=== PATIENT | female | born 1970 | race Caucasian/White ===

== ENCOUNTER 2021-07-02 12:25 | Inpatient (IN) | payer MEDICAID ==
[~2021-07-02] VITALS: Ht 160 cm; Wt 69.7 kg
[~2021-07-02 12:25] MED LIST: Aspirin PO; CEPH-264 PO; CIPR250T30 PO; CLOP75TA PO; CLOP75TA57 PO; DOCU-109 PO; GABA300C18 PO; Hydrocodone/Acetaminophen PO; INSU100I13 SQ; INSU100I17 SQ; INSU100I27 SQ; Insulin Detemir SQ; OXYC1TAB19 PO; PERM60CR12 TP; PREG50CA91 PO
--- NOTE | 2021-07-02 13:06 | RAD ---
XR CHEST 1V History: Reason: SOB / Spl. Instructions: / History: Comparison: December 05, 2014 Findings: Small bilateral pleural effusions, left greater than right. Mild interstitial thickening with patchy bibasilar opacities. Left-sided ICD. Enlarged cardiac size. No pneumothorax. Impression: 1. Small bilateral pleural effusions, left greater than right. 2. Mild interstitial thickening with patchy bibasilar opacities, may represent pulmonary edema. 3. Enlarged cardiac size, may indicate cardiomegaly and/or pericardial effusion. Electronically signed by: Greg Elliott DO (07/02/2021 1:04 PM) [facility]
[2021-07-02 13:28] LABS: BASO % 1 % (0-3); EOS # 0.1 x10^3/uL (0.0-0.7); EOS % 3 % (0-3); HEMATOCRIT 26.6 % (36.0-47.0); HEMOGLOBIN 8.8 g/dL (12.0-15.5); LYMPH # 0.7 x10^3/uL (1.0-4.8); LYMPH % 17 % (24-48); MEAN CORPUSCULAR HEMOGLOBIN 30 pg (25-35); MEAN CORPUSCULAR HGB CONC 33 g/dL (31-37); MEAN CORPUSCULAR VOLUME 89 fL (79-100); MONO # 0.2 x10^3/uL (0.0-1.1); MONO % 5 % (0-9); NEUT # 2.8 x10^3/uL (1.8-7.7); NEUT % 73 % (31-73); PLATELET COUNT 250 x10^3/uL (140-400); RED BLOOD COUNT 2.98 x10^6/uL (3.50-5.40); RED CELL DISTRIBUTION WIDTH 13.1 % (11.5-14.5); WHITE BLOOD COUNT 3.8 x10^3/uL (4.0-11.0)
[2021-07-02 13:43] LABS: CREATININE 2.4 mg/dL (0.6-1.0); GFR 21.4; POTASSIUM 5.1 mmol/L (3.5-5.1)
[2021-07-02 13:48] LABS: ALBUMIN 2.7 g/dL (3.4-5.0); ALBUMIN/GLOBULIN RATIO 0.6 (1.0-1.7); TOTAL BILIRUBIN 0.9 mg/dL (0.2-1.0); TOTAL PROTEIN 7.2 g/dL (6.4-8.2)
[2021-07-02 14:08] LABS: INFLUENZA A PATIENT POSITIVE (NEGATIVE); INFLUENZA B PATIENT NEGATIVE (NEGATIVE)
[2021-07-02] MEDS: OSELTAMIVIR 30 MG CAPSULE PO SCH (14:28)
[2021-07-02] MEDS ORDERED: FUROSEMIDE 40 MG/4 ML VIAL. IVP ONE (14:30)
[2021-07-02] MEDS ORDERED: INSULIN REGULAR 100 UNIT/ML 3ML VIAL. IV ONE (14:30)
--- NOTE | 2021-07-02 14:46 | PHYS DOC ---
Past Medical History Past Medical History: Diabetes-Type II Additional Past Medical Histor: [id number] w/meds; Staph infection, dka, insect infestation Past Surgical History: No Surgical History Additional Past Surgical Histo: DNC; PICC line insertion, Right BKA Smoking Status: Former Smoker Alcohol Use: None Drug Use: None General Adult EDM: Chief Complaint: COUGH HPI: HPI: Patient is a 50 year old female presents to the ER with extreme fatigue shortness of breath and cough. Patient states that her grandson has viral upper respiratory infection states that she wanted to be worked up for that. States her symptoms started progressively over the last 3 days. Patient also states that she has a history of CHF and was wondering if her CHF was getting worse as she has noticed that her lower extremities have become more edematous. Patient reports dyspnea on exertion. Patient denies any fevers or chills denies any nausea or vomiting. Patient also insulin-dependent diabetic states that she did not take her insulin yesterday as her appetite is decreased. Review of Systems: Review of Systems: Constitutional: Fatigue, denies fever or chills. [] Eyes: Denies change in visual acuity. [] HENT: Denies nasal congestion or sore throat. [] Respiratory: Dry cough and shortness of breath Cardiovascular: Dyspnea on exertion, lower extremity edema denies chest pain GI: Denies abdominal pain, nausea, vomiting, bloody stools or diarrhea. [] : Denies dysuria. [] Musculoskeletal: Denies back pain or joint pain. [] Integument: Denies rash. [] Neurologic: Denies headache, focal weakness or sensory changes. [] Endocrine: Denies polyuria or polydipsia. [] Lymphatic: Denies swollen glands. [] Psychiatric: Denies depression or anxiety. [] Heart Score: C/O Chest Pain: No Risk Factors: Risk Factors: DM, Current or recent (<one month) smoker, HTN, HLP, family history of CAD, obesity. Risk Scores: Score 0 - 3: 2.5% MACE over next 6 weeks - Discharge Home Score 4 - 6: 20.3% MACE over next 6 weeks - Admit for Clinical Observation Score 7 - 10: 72.7% MACE over next 6 weeks - Early Invasive Strategies Current Medications: Current Medications Medications (Trade) Dose Ordered Sig/Alexandra Start Time Stop Time Status Last Admin Dose Admin Furosemide (Lasix) 40 mg 1X ONCE 07/02/21 14:30 07/02/21 14:31 DC 07/02/21 14:30 40 MG Insulin Human Regular (HumuLIN R VIAL) 6 unit 1X ONCE 07/02/21 14:30 07/02/21 14:31 DC 07/02/21 14:37 6 UNIT Oseltamivir Phosphate (Tamiflu) 30 mg DAILY 07/02/21 14:30 07/07/21 14:29 07/02/21 14:28 30 MG Allergies: Allergies: Allergies Coded Allergies Type Severity Reaction Last Updated Verified No Known Drug Allergies 12/11/13 No Physical Exam: PE: Constitutional: Well developed, well nourished, no acute distress, non-toxic appearance. [] HENT: Normocephalic, atraumatic, bilateral external ears normal, oropharynx moist, no oral exudates, nose normal. [] Eyes: PERRLA, EOMI, conjunctiva normal, no discharge. [] Neck: Normal range of motion, no tenderness, supple, no stridor. [] Cardiovascular:Heart rate regular rhythm, no murmur [] Lungs & Thorax: Bilateral breath sounds clear to auscultation [] Abdomen: Bowel sounds normal, soft, no tenderness, no masses, no pulsatile masses. [] Skin: Warm, dry, no erythema, no rash. [] Back: No tenderness, no CVA tenderness. [] Extremities: No tenderness, no cyanosis, no clubbing, ROM intact, no edema. [] Neurologic: Alert and oriented X 3, normal motor function, normal sensory function, no focal deficits noted. [] Psychologic: Affect normal, judgement normal, mood normal. [] Current Patient Data: Labs: Laboratory Tests Test 07/02/21 13:10 07/02/21 13:25 07/02/21 13:30 White Blood Count 3.8 x10^3/uL (4.0-11.0) L Red Blood Count 2.98 x10^6/uL (3.50-5.40) L Hemoglobin 8.8 g/dL (12.0-15.5) L Hematocrit 26.6 % (36.0-47.0) L Mean Corpuscular Volume 89 fL (79-100) Mean Corpuscular Hemoglobin 30 pg (25-35) Mean Corpuscular Hemoglobin Concent 33 g/dL (31-37) Red Cell Distribution Width 13.1 % (11.5-14.5) Platelet Count 250 x10^3/uL (140-400) Neutrophils (%) (Auto) 73 % (31-73) Lymphocytes (%) (Auto) 17 % (24-48) L Monocytes (%) (Auto) 5 % (0-9) Eosinophils (%) (Auto) 3 % (0-3) Basophils (%) (Auto) 1 % (0-3) Neutrophils # (Auto) 2.8 x10^3/uL (1.8-7.7) Lymphocytes # (Auto) 0.7 x10^3/uL (1.0-4.8) L Monocytes # (Auto) 0.2 x10^3/uL (0.0-1.1) Eosinophils # (Auto) 0.1 x10^3/uL (0.0-0.7) Basophils # (Auto) 0.0 x10^3/uL (0.0-0.2) Sodium Level 135 mmol/L (136-145) L Potassium Level 5.1 mmol/L (3.5-5.1) Chloride Level 100 mmol/L (98-107) Carbon Dioxide Level 24 mmol/L (21-32) Anion Gap 11 (6-14) Blood Urea Nitrogen 54 mg/dL (7-20) H Creatinine 2.4 mg/dL (0.6-1.0) H Estimated GFR (Cockcroft-Gault) 21.4 BUN/Creatinine Ratio 23 (6-20) H Glucose Level 451 mg/dL (70-99) H Calcium Level 9.0 mg/dL (8.5-10.1) Total Bilirubin 0.9 mg/dL (0.2-1.0) Aspartate Amino Transferase (AST) 12 U/L (15-37) L Alanine Aminotransferase (ALT) 24 U/L (14-59) Alkaline Phosphatase 95 U/L (46-116) NT-Vev-I-Type Natriuretic Peptide 55322 pg/mL (0-124) H Total Protein 7.2 g/dL (6.4-8.2) Albumin 2.7 g/dL (3.4-5.0) L Albumin/Globulin Ratio 0.6 (1.0-1.7) L SARS-CoV-2 Antigen (Rapid) Negative (NEGATIVE) Influenza Type A Antigen Positive (NEGATIVE) Influenza Type B Antigen Negative (NEGATIVE) Laboratory Tests 07/02/21 13:10 Laboratory Tests 07/02/21 13:10 Vital Signs: Vital Signs Date Time Temp Pulse Resp B/P (MAP) Pulse Ox O2 Delivery O2 Flow Rate FiO2 07/02/21 12:32 98.8 75 55 158/74 (102) 92 Room Air 98.8 EKG: EKG: [] Sinus rhythm heart rate of 74. No ischemic changes. QTc 429 SC interval 156 Radiology/Procedures: Radiology/Procedures: []XR CHEST 1V History: Reason: SOB / Spl. Instructions: / History: Comparison: December 05, 2014 Findings: Small bilateral pleural effusions, left greater than right. Mild interstitial thickening with patchy bibasilar opacities. Left-sided ICD. Enlarged cardiac size. No pneumothorax. Impression: 1. Small bilateral pleural effusions, left greater than right. 2. Mild interstitial thickening with patchy bibasilar opacities, may represent pulmonary edema. 3. Enlarged cardiac size, may indicate cardiomegaly and/or pericardial effusion. Course & Med Decision Making: Course & Med Decision Making Pertinent Labs and Imaging studies reviewed. (See chart for details) [] Discussed the case with hospitalist Patient given Lasix. Patient given insulin. Dragon Disclaimer: Mindi Disclaimer: This electronic medical record was generated, in whole or in part, using a voice recognition dictation system. Departure Departure Impression: Primary Impression: CHF (congestive heart failure) Additional Impressions: Influenza A Hyperglycemia Acute renal insufficiency Condition: STABLE Referrals: NO PCP CARLOS ANGELA DO Jul 02, 2021 14:46
--- NOTE | 2021-07-02 15:09 | HP ---
DATE OF SERVICE: 07/02/2021 ADMIT DATE: 07/02/2021 CHIEF COMPLAINT: Shortness of breath and cough. HISTORY OF PRESENT ILLNESS: The patient is a pleasant 50-year-old female who has a history of cardiomyopathy with a 15-20% ejection fraction. Basically, she presented with shortness of breath today, which we did some imaging and some labs. She has flu A. She also has acute on chronic systolic and diastolic heart failure with vascular congestion. I discussed the case with ER physician. We are going to admit the patient and consult Cardiology. PAST MEDICAL HISTORY: CHF with a 15-20% EF, CAD, diabetes, hypertension. ALLERGIES: None. FAMILY HISTORY: Diabetes. SOCIAL HISTORY: She does not drink, smoke or take drugs. MEDICATIONS: Reviewed, please refer to the MRAD. REVIEW OF SYSTEMS: GENERAL: No history of weight change, weakness or fevers. SKIN: No bruising, hair changes or rashes. EYES: No blurred, double or loss of vision. NOSE AND THROAT: No history of nosebleeds, hoarseness or sore throat. HEART: No history of palpitations, chest pain or shortness of breath on exertion. LUNGS: She complains of shortness of breath and cough. GASTROINTESTINAL: Denies changes in appetite, nausea, vomiting, diarrhea or constipation. GENITOURINARY: No history of frequency, urgency, hesitancy or nocturia. NEUROLOGIC: Denies history of numbness, tingling, tremor or weakness. PSYCHIATRIC: No history of panic, anxiety or depression. ENDOCRINE: No history of heat or cold intolerance, polyuria or polydipsia. EXTREMITIES: Denies muscle weakness, joint pain, pain on walking or stiffness. PHYSICAL EXAMINATION: VITALS: Within normal limits and are stable. GENERAL: No apparent distress. Alert and oriented. HEENT: Normal cephalic atraumatic, external auditory canals are patent. EYES: Extraocular muscles are intact, pupils are equally round and reactive to light and accommodation. MUSCULOSKELETAL: Well developed, well nourished, good range of motion. ENDOCRINE: No thyromegaly was palpated. LYMPHATICS: No cervical chain or axillary nodes were noted. HEMATOPOIETIC: No bruising. NECK: Supple, no JVD, no thyromegaly was noted. LUNGS: She has crackles on the right. HEART: RRR, S1, S2 present. Peripheral pulses intact, no obvious murmurs were noted. ABDOMEN: Soft, nontender. Positive bowel sounds no organomegaly, normal bowel sounds. EXTREMITIES: Without any cyanosis, clubbing, or edema. Pedal pulses intact, Homans sign is negative. NEUROLOGIC: Normal speech, normal tone. A and O x 3, moves all extremities, no obvious focal deficits. PSYCHIATRIC: Normal affect, normal mood. Stable. SKIN: No ulcerations or rashes, good skin turgor, no jaundice. VASCULAR: Good capillary refill, neurovascular bundle appears to be intact. LABORATORY DATA: White count is 3.8, hemoglobin 8.8, platelets 250. Electrolytes: Sodium 135, BUN 54, creatinine 2.4. Flu A is positive. COVID testing is negative. Chest x-ray shows small bilateral pleural effusions, pulmonary edema and cardiomegaly. ASSESSMENT AND PLAN: Acute on chronic systolic and diastolic heart failure with flu A. The patient has been admitted. We will consult Cardiology. IV Lasix. Tamiflu. Home meds. Deep venous thrombosis prophylaxis. Full code. BETY/GABI DR: BETY/amy TID: [id number]
[2021-07-02 17:05] VITALS: BP 148/64
[2021-07-02] MEDS ORDERED: CRESTOR40 MG PO (17:07)
[2021-07-02] MEDS ORDERED: ASPI-886 PO (17:07)
[2021-07-02] MEDS ORDERED: FERR240T11 PO (17:07)
[2021-07-02] MEDS ORDERED: CARV12.511 PO (17:07)
[2021-07-02] MEDS ORDERED: ONDA4TAB12 PO (17:07)
[2021-07-02] MEDS ORDERED: TORS100T3 PO (17:07)
[2021-07-02] MEDS ORDERED: ONDANSETRON ODT 4 MG TAB.RAPDIS. PO PRN (17:45)
[2021-07-02] MEDS ORDERED: DEXTROSE 50% 25 GM / 50ML DISP.SYRIN. IV PRN (17:45)
[2021-07-02] MEDS ORDERED: IV DEXTROSE 5% 250 ML BAG. IV PRN (17:45)
[2021-07-02] MEDS: TORSEMIDE 20 MG TABLET. PO SCH (18:00)
[2021-07-02] MEDS: CARVEDILOL 12.5 MG TABLET. PO SCH (18:00)
[2021-07-02] MEDS: INSULIN LISPRO 300 UNITS/3 ML VIAL. SQ SCH (18:09)
[2021-07-02] MEDS ORDERED: INSU100I13 SQ (18:13)
[2021-07-02 19:17] VITALS: BP 148/74
[2021-07-02] MEDS ORDERED: ATORVASTATIN CALCIUM 40 MG TABLET. PO SCH (21:00)
[2021-07-02] MEDS: INSULIN GLARGINE SYRINGE. SQ SCH (21:32)
[2021-07-02 22:18] VITALS: BP 140/73
[2021-07-03 02:06] VITALS: BP 138/74
[2021-07-03 07:00] VITALS: BP 141/65
[2021-07-03] MEDS: CARVEDILOL 12.5 MG TABLET. PO SCH ×2 (07:39→16:51)
[2021-07-03] MEDS: TORSEMIDE 20 MG TABLET. PO SCH ×2 (07:39→13:51)
[2021-07-03] MEDS: FERROUS SULFATE 325 MG TABLET. PO SCH (07:40)
[2021-07-03] MEDS: ASPIRIN ENTERIC COATED 81 MG TABLET.DR. PO SCH (07:40)
[2021-07-03] MEDS: OSELTAMIVIR 30 MG CAPSULE PO SCH (07:40)
[2021-07-03] MEDS: INSULIN LISPRO 300 UNITS/3 ML VIAL. SQ SCH ×3 (07:42→16:52)
--- NOTE | 2021-07-03 09:58 | PDOC2 ---
CONSULT Date of Consult Date of Consult DATE: 07/03/21 TIME: 09:54 Reason for Consult Reason for Consult: DAMIEN Identification/Chief Complaint Chief Complaint No complaints at present History of Present Illness Reason for Visit: Patient is a 50 year old CF presents to the ER with extreme fatigue shortness of breath and cough. Patient states that her grandson has viral upper respiratory infection states that she wanted to be worked up for that. States her symptoms started progressively over the last 3 days. Patient also states that she has a history of CHF and was wondering if her CHF was getting worse as she has noticed that her lower extremities have become more edematous. Patient reports dyspnea on exertion. Patient denies any fevers or chills denies any nausea or vomiting.Denies any urinary complaints. States remote history of Nephrolithiasis, nothing recently .States very rare use of NSAID;s. States follows with [facility] in [place] and she has CKD stage 3, doesnt know any other details Patient also insulin-dependent diabetic states that she did not take her insulin yesterday as her appetite is decreased. Past Medical History Cardiovascular: Other CENTRAL NERVOUS SYSTEM: Periperal neuropathy GI: No pertinent hx Heme/Onc: Cancer Hepatobiliary: No pertinent hx Psych: No pertinent hx Musculoskeletal: Osteoarthritis Rheumatologic: No pertinent hx Infectious disease: No pertinent hx, Other Renal/: No pertinent hx Endocrine: Diabetes Past Surgical History Past Surgical History: Other Family History Family History: Family History Unknown Social History ALCOHOL: none Drugs: None Lives: with Family Domestic Violence: Neg Current Problem List Problem List Problems Medical Problems: (1) Acute renal insufficiency Status: Acute (2) CHF (congestive heart failure) Status: Acute (3) Influenza A Status: Acute (4) Intracranial hemorrhage Status: Acute Current Medications Current Medications Current Medications Oseltamivir Phosphate (Tamiflu) 30 mg DAILY PO Last administered on 07/03/21at 07:40; Start 07/02/21 at 14:30; Stop 07/07/21 at 14:29 Furosemide (Lasix) 40 mg 1X ONCE IVP Last administered on 07/02/21at 14:30; Start 07/02/21 at 14:30; Stop 07/02/21 at 14:31; Status DC Insulin Human Regular (HumuLIN R VIAL) 6 unit 1X ONCE IV Last administered on 07/02/21at 14:37; Start 07/02/21 at 14:30; Stop 07/02/21 at 14:31; Status DC Dextrose (Dextrose 50%-Water Syringe) 12.5 gm PRN Q15MIN PRN IV SEE COMMENTS; Start 07/02/21 at 17:45 Insulin Human Lispro (HumaLOG) 0-5 UNITS TIDWMEALS SQ Last administered on 07/03/21at 07:42; Start 07/02/21 at 18:00 Dextrose (Iv Dextrose 5%) 250 ml PRN Q15MIN PRN IV SEE COMMENTS; Start 07/02/21 at 17:45; Stop 07/02/21 at 17:52; Status DC Aspirin (Ecotrin) 81 mg DAILY PO Last administered on 07/03/21at 07:40; Start 07/03/21 at 09:00 Carvedilol (Coreg) 12.5 mg BIDWMEALS PO Last administered on 07/03/21at 07:39; Start 07/02/21 at 18:00 Ondansetron HCl (Zofran Odt) 4 mg PRN Q8HRS PRN PO NAUSEA; Start 07/02/21 at 17:45 Ferrous Sulfate (Feosol) 325 mg DAILYWBKFT PO Last administered on 07/03/21at 07:40; Start 07/03/21 at 08:00 Atorvastatin Calcium (Lipitor) 80 mg QHS PO ; Start 07/02/21 at 21:00 Torsemide (Demadex) 100 mg BID92 PO Last administered on 07/03/21at 07:39; Start 07/02/21 at 18:00 Insulin Glargine (Lantus Syringe) 16 unit QHS SQ Last administered on 07/02/21at 21:32; Start 07/02/21 at 21:00 Active Scripts Active Novolog Flexpen (Insulin Aspart) 300 Units/3 Ml Insuln.pen 14 Units SQ TIDAC Neurontin (Gabapentin) 300 Mg Capsule 300 Mg PO TID Plavix (Clopidogrel Bisulfate) 75 Mg Tablet 75 Mg PO DAILY Novolog Flexpen (Insulin Aspart) 300 Units/3 Ml Insuln.pen 15 Units SQ TIDAC [Aspirin] 325 MG Tablet 325 Mg PO DAILYWBKFT [Insulin Detemir] 300 UNITS/3 ML Insuln.pen 15 Units SQ QHS Reported Lantus Solostar (Insulin Glargine,Hum.rec.anlog) 100 Unit/1 Ml Insuln.pen 16 Unit SQ QHS Crestor (Rosuvastatin Calcium) 40 Mg Tablet 0.5 Tab PO QHS Ondansetron Odt (Ondansetron) 4 Mg Tab.rapdis 1 Tab PO PRN Q6-8HRS PRN Carvedilol (Carvedilol) 12.5 Mg Tablet 12.5 Mg PO BIDWMEALS Iron (Ferrous Gluconate) 240 Mg Tablet 1 Tab PO DAILY 30 Days Aspirin Ec (Aspirin) 81 Mg Tablet.dr 1 Tab PO DAILY Torsemide 100 Mg Tablet 1 Tab PO BID 30 Days Clopidogrel (Clopidogrel Bisulfate) 75 Mg Tablet 1 Tab PO DAILY Gabapentin (Gabapentin) 300 Mg Capsule 1 Cap PO TID Allergies Allergies: Coded Allergies: atorvastatin (Verified Allergy, Intermediate, home med rosuvastatin is ok, 07/04/21) ROS Review of System As per HPI, rest of the ROS is negative Physical Exam Physical Exam General: No acute distress HEENT: Atraumatic, OM moist Neck Supple CTA, Non labored, On RA Other Heart: Regular rate Abdomen: Soft, No tenderness, BS + Extremities:1+ bilateral LE edema, No cyanosis Skin: No significant lesion, No rash Neuro: grossly normal Psych/Mental Status: Cooperative No Best, No CVA or SP tenderness Vital Signs Vital Signs Date Time Temp Pulse Resp B/P (MAP) Pulse Ox O2 Delivery O2 Flow Rate FiO2 07/03/21 08:00 Room Air 07/03/21 07:39 70 138/74 07/03/21 07:00 97.0 18 98 97.0 Assessment & Plan DAMIEN vs CKD - patient reports has Dx of CKD 3, baseline unavailable . Non Oliguric (per nursing report ). Supportive care , avoid Nephrotoxins, StrictI/O. Obtain records from her sample box maker , garrett RN Hold Diuretics if worsening renal function CKD stage 3 - per patient , follows with [facility] in [place] . No Interval labs since 2014 in our records Cr was Normal with intermittent DAMIEN in past DM on Insulin Influenza A POA Acute on chronic systolic CHF; improved s/p IV Lasix Ischemic cardiomyopathy; s/p recent AICD implantation CAD s/p PCI/stent approximately 2 years ago. Follows with [facility] in [place], [place] Labs Labs Laboratory Tests Test 07/02/21 13:10 07/02/21 13:25 07/02/21 13:30 07/02/21 16:56 White Blood Count 3.8 x10^3/uL (4.0-11.0) Red Blood Count 2.98 x10^6/uL (3.50-5.40) Hemoglobin 8.8 g/dL (12.0-15.5) Hematocrit 26.6 % (36.0-47.0) Mean Corpuscular Volume 89 fL (79-100) Mean Corpuscular Hemoglobin 30 pg (25-35) Mean Corpuscular Hemoglobin Concent 33 g/dL (31-37) Red Cell Distribution Width 13.1 % (11.5-14.5) Platelet Count 250 x10^3/uL (140-400) Neutrophils (%) (Auto) 73 % (31-73) Lymphocytes (%) (Auto) 17 % (24-48) Monocytes (%) (Auto) 5 % (0-9) Eosinophils (%) (Auto) 3 % (0-3) Basophils (%) (Auto) 1 % (0-3) Neutrophils # (Auto) 2.8 x10^3/uL (1.8-7.7) Lymphocytes # (Auto) 0.7 x10^3/uL (1.0-4.8) Monocytes # (Auto) 0.2 x10^3/uL (0.0-1.1) Eosinophils # (Auto) 0.1 x10^3/uL (0.0-0.7) Basophils # (Auto) 0.0 x10^3/uL (0.0-0.2) Sodium Level 135 mmol/L (136-145) Potassium Level 5.1 mmol/L (3.5-5.1) Chloride Level 100 mmol/L (98-107) Carbon Dioxide Level 24 mmol/L (21-32) Anion Gap 11 (6-14) Blood Urea Nitrogen 54 mg/dL (7-20) Creatinine 2.4 mg/dL (0.6-1.0) Estimated GFR (Cockcroft-Gault) 21.4 BUN/Creatinine Ratio 23 (6-20) Glucose Level 451 mg/dL (70-99) Calcium Level 9.0 mg/dL (8.5-10.1) Total Bilirubin 0.9 mg/dL (0.2-1.0) Aspartate Amino Transf (AST/SGOT) 12 U/L (15-37) Alanine Aminotransferase (ALT/SGPT) 24 U/L (14-59) Alkaline Phosphatase 95 U/L (46-116) EL-Nbm-N-Type Natriuretic Peptide 92369 pg/mL (0-124) Total Protein 7.2 g/dL (6.4-8.2) Albumin 2.7 g/dL (3.4-5.0) Albumin/Globulin Ratio 0.6 (1.0-1.7) SARS-CoV-2 Antigen (Rapid) Negative (NEGATIVE) Influenza Type A Antigen Positive (NEGATIVE) Influenza Type B Antigen Negative (NEGATIVE) Glucose (Fingerstick) 237 mg/dL (70-99) Test 07/02/21 19:16 07/03/21 07:27 Glucose (Fingerstick) 318 mg/dL (70-99) 163 mg/dL (70-99) Laboratory Tests Test 07/02/21 13:10 07/02/21 13:25 07/02/21 13:30 07/02/21 16:56 White Blood Count 3.8 x10^3/uL (4.0-11.0) Red Blood Count 2.98 x10^6/uL (3.50-5.40) Hemoglobin 8.8 g/dL (12.0-15.5) Hematocrit 26.6 % (36.0-47.0) Mean Corpuscular Volume 89 fL (79-100) Mean Corpuscular Hemoglobin 30 pg (25-35) Mean Corpuscular Hemoglobin Concent 33 g/dL (31-37) Red Cell Distribution Width 13.1 % (11.5-14.5) Platelet Count 250 x10^3/uL (140-400) Neutrophils (%) (Auto) 73 % (31-73) Lymphocytes (%) (Auto) 17 % (24-48) Monocytes (%) (Auto) 5 % (0-9) Eosinophils (%) (Auto) 3 % (0-3) Basophils (%) (Auto) 1 % (0-3) Neutrophils # (Auto) 2.8 x10^3/uL (1.8-7.7) Lymphocytes # (Auto) 0.7 x10^3/uL (1.0-4.8) Monocytes # (Auto) 0.2 x10^3/uL (0.0-1.1) Eosinophils # (Auto) 0.1 x10^3/uL (0.0-0.7) Basophils # (Auto) 0.0 x10^3/uL (0.0-0.2) Sodium Level 135 mmol/L (136-145) Potassium Level 5.1 mmol/L (3.5-5.1) Chloride Level 100 mmol/L (98-107) Carbon Dioxide Level 24 mmol/L (21-32) Anion Gap 11 (6-14) Blood Urea Nitrogen 54 mg/dL (7-20) Creatinine 2.4 mg/dL (0.6-1.0) Estimated GFR (Cockcroft-Gault) 21.4 BUN/Creatinine Ratio 23 (6-20) Glucose Level 451 mg/dL (70-99) Calcium Level 9.0 mg/dL (8.5-10.1) Total Bilirubin 0.9 mg/dL (0.2-1.0) Aspartate Amino Transf (AST/SGOT) 12 U/L (15-37) Alanine Aminotransferase (ALT/SGPT) 24 U/L (14-59) Alkaline Phosphatase 95 U/L (46-116) KH-Anc-Q-Type Natriuretic Peptide 86611 pg/mL (0-124) Total Protein 7.2 g/dL (6.4-8.2) Albumin 2.7 g/dL (3.4-5.0) Albumin/Globulin Ratio 0.6 (1.0-1.7) SARS-CoV-2 Antigen (Rapid) Negative (NEGATIVE) Influenza Type A Antigen Positive (NEGATIVE) Influenza Type B Antigen Negative (NEGATIVE) Glucose (Fingerstick) 237 mg/dL (70-99) Test 07/02/21 19:16 07/03/21 07:27 Glucose (Fingerstick) 318 mg/dL (70-99) 163 mg/dL (70-99) Review All relevant outside records, renal labs, imaging studies, telemetry/EKG's were reviewed. Images Images History: Reason: SOB / Spl. Instructions: / History: Comparison: December 05, 2014 Findings: Small bilateral pleural effusions, left greater than right. Mild interstitial thickening with patchy bibasilar opacities. Left-sided ICD. Enlarged cardiac size. No pneumothorax. Impression: 1. Small bilateral pleural effusions, left greater than right. 2. Mild interstitial thickening with patchy bibasilar opacities, may represent pulmonary edema. 3. Enlarged cardiac size, may indicate cardiomegaly and/or pericardial effusion. JT TOWNSEND MD Jul 03, 2021 09:58
--- NOTE | 2021-07-03 10:19 | EKG ---
[facility] [address] [place] [address] Test Date: 2021-07-02 Test Time: 13:09:24 Pat Name: LOIR ALEXANDER Department: Room: Gender: F Development Director: : 1970 Requested By: CARLOS ANGELA Order Number: [id number] Reading MD: Measurements Intervals [place] Rate: 74 P: 0 MI: 156 QRS: 1 QRSD: 80 T: 80 QT: 386 QTc: 429 Interpretive Statements SINUS RHYTHM LOW LIMB LEAD VOLTAGE QRS(T) CONTOUR ABNORMALITY CONSIDER ANTEROLATERAL MYOCARDIAL DAMAGE POSSIBLY ABNORMAL ECG RI6.02 No previous ECG available for comparison
[2021-07-03 11:00] VITALS: BP 130/61
[2021-07-03 11:13] LABS: CALCIUM 8.8 mg/dL (8.5-10.1); CREATININE 2.2 mg/dL (0.6-1.0); GFR 23.6; POTASSIUM 4.2 mmol/L (3.5-5.1)
[2021-07-03 11:16] LABS: ALBUMIN 2.9 g/dL (3.4-5.0); PHOSPHORUS 4.8 mg/dL (2.6-4.7)
--- NOTE | 2021-07-03 12:05 | PDOC2 ---
VANDA ROBLEDO IRRIGATION SUPERVISOR 07/03/21 1205: CARDIAC CONSULT DATE OF CONSULT Date of Consult DATE: 07/03/21 TIME: 11:56 REASON FOR CONSULT Reason for Consult: CHF REFERRING PHYSICIAN Referring Physician: Dr. Alatorre SOURCE Source: Chart review, Patient HISTORY OF PRESENT ILLNESS HISTORY OF PRESENT ILLNESS This is a 50 yo female who presented secondary to shortness of breath, cough, and LE edema. Has a history of CAD and cardiomyopathy s/p AICD. Is from [place], [place]. Here visiting family. Reports nephew at home has been sick. She then develop cough, congestion, and some shortness of breath. She then developed bilateral LE edema and was concerned that she was in acute CHF so she came to the ED for further evaluation and treatment. She reports compliance with meds at home. No chest pain, palpitations, dizziness, diaphoresis, or nausea/vomiting. PAST MEDICAL HISTORY Cardiovascular: CAD, CHF, Hyperlipidemia Musculoskeletal: Osteoarthritis Endocrine: Diabetes PAST SURGICAL HISTORY Past Surgical History: Pacemaker FAMILY HISTORY Family History: Heart Disease SOCIAL HISTORY ALCOHOL: none Drugs: None Lives: with Family CURRENT MEDICATIONS CURRENT MEDICATIONS Current Medications Medications (Trade) Dose Ordered Sig/Alexandra Route PRN Reason Start Time Stop Time Status Last Admin Dose Admin Oseltamivir Phosphate (Tamiflu) 30 mg DAILY PO 07/02/21 14:30 07/07/21 14:29 07/03/21 07:40 Furosemide (Lasix) 40 mg 1X ONCE IVP 07/02/21 14:30 07/02/21 14:31 DC 07/02/21 14:30 Insulin Human Regular (HumuLIN R VIAL) 6 unit 1X ONCE IV 07/02/21 14:30 07/02/21 14:31 DC 07/02/21 14:37 Insulin Human Lispro (HumaLOG) 0-5 UNITS TIDWMEALS SQ 07/02/21 18:00 07/03/21 07:42 Aspirin (Ecotrin) 81 mg DAILY PO 07/03/21 09:00 07/03/21 07:40 Carvedilol (Coreg) 12.5 mg BIDWMEALS PO 07/02/21 18:00 07/03/21 07:39 Ferrous Sulfate (Feosol) 325 mg DAILYWBKFT PO 07/03/21 08:00 07/03/21 07:40 Torsemide (Demadex) 100 mg BID92 PO 07/02/21 18:00 07/03/21 07:39 Insulin Glargine (Lantus Syringe) 16 unit QHS SQ 07/02/21 21:00 07/02/21 21:32 ALLERGIES ALLERGIES: Coded Allergies: atorvastatin (Verified Allergy, Intermediate, home med rosuvastatin is ok, 07/04/21) ROS Review of System 14 point ROS conducted with pertinent positives noted above in HPI PHYSICAL EXAM General: Alert, Oriented X3, Cooperative, No acute distress HEENT: Atraumatic Lungs: Other (on RA) Heart: Regular rate Abdomen: Soft, No tenderness Extremities: Other (1+ bilateral LE edema ) Skin: No significant lesion Neuro: Sensation intact Psych/Mental Status: Mental status NL, Mood NL MUSCULOSKELETAL: Osteoarthritic changes both hands VITALS/I&O VITALS/I&O: Vital Signs Date Time Temp Pulse Resp B/P (MAP) Pulse Ox O2 Delivery O2 Flow Rate FiO2 07/03/21 11:00 98.4 61 18 130/61 (84) 98 Room Air 98.4 I & O 07/02/21 07/02/21 07/03/21 15:00 23:00 07:00 Intake Total 200 ml 300 ml Output Total 400 ml 150 ml Balance -200 ml 150 ml LABS Lab: Laboratory Tests Test 07/02/21 13:10 07/02/21 13:25 07/02/21 13:30 07/02/21 16:56 White Blood Count 3.8 x10^3/uL (4.0-11.0) L Red Blood Count 2.98 x10^6/uL (3.50-5.40) L Hemoglobin 8.8 g/dL (12.0-15.5) L Hematocrit 26.6 % (36.0-47.0) L Mean Corpuscular Volume 89 fL (79-100) Mean Corpuscular Hemoglobin 30 pg (25-35) Mean Corpuscular Hemoglobin Concent 33 g/dL (31-37) Red Cell Distribution Width 13.1 % (11.5-14.5) Platelet Count 250 x10^3/uL (140-400) Neutrophils (%) (Auto) 73 % (31-73) Lymphocytes (%) (Auto) 17 % (24-48) L Monocytes (%) (Auto) 5 % (0-9) Eosinophils (%) (Auto) 3 % (0-3) Basophils (%) (Auto) 1 % (0-3) Neutrophils # (Auto) 2.8 x10^3/uL (1.8-7.7) Lymphocytes # (Auto) 0.7 x10^3/uL (1.0-4.8) L Monocytes # (Auto) 0.2 x10^3/uL (0.0-1.1) Eosinophils # (Auto) 0.1 x10^3/uL (0.0-0.7) Basophils # (Auto) 0.0 x10^3/uL (0.0-0.2) Sodium Level 135 mmol/L (136-145) L Potassium Level 5.1 mmol/L (3.5-5.1) Chloride Level 100 mmol/L (98-107) Carbon Dioxide Level 24 mmol/L (21-32) Anion Gap 11 (6-14) Blood Urea Nitrogen 54 mg/dL (7-20) H Creatinine 2.4 mg/dL (0.6-1.0) H Estimated GFR (Cockcroft-Gault) 21.4 BUN/Creatinine Ratio 23 (6-20) H Glucose Level 451 mg/dL (70-99) H Calcium Level 9.0 mg/dL (8.5-10.1) Total Bilirubin 0.9 mg/dL (0.2-1.0) Aspartate Amino Transferase (AST) 12 U/L (15-37) L Alanine Aminotransferase (ALT) 24 U/L (14-59) Alkaline Phosphatase 95 U/L (46-116) UB-Zip-M-Type Natriuretic Peptide 79649 pg/mL (0-124) H Total Protein 7.2 g/dL (6.4-8.2) Albumin 2.7 g/dL (3.4-5.0) L Albumin/Globulin Ratio 0.6 (1.0-1.7) L SARS-CoV-2 Antigen (Rapid) Negative (NEGATIVE) Influenza Type A Antigen Positive (NEGATIVE) Influenza Type B Antigen Negative (NEGATIVE) Glucose (Fingerstick) 237 mg/dL (70-99) H Test 07/02/21 19:16 07/03/21 07:27 07/03/21 10:30 07/03/21 11:18 Glucose (Fingerstick) 318 mg/dL (70-99) H 163 mg/dL (70-99) H 106 mg/dL (70-99) H Sodium Level 139 mmol/L (136-145) Potassium Level 4.2 mmol/L (3.5-5.1) Chloride Level 103 mmol/L (98-107) Carbon Dioxide Level 25 mmol/L (21-32) Anion Gap 11 (6-14) Blood Urea Nitrogen 60 mg/dL (7-20) H Creatinine 2.2 mg/dL (0.6-1.0) H Estimated GFR (Cockcroft-Gault) 23.6 Glucose Level 85 mg/dL (70-99) Calcium Level 8.8 mg/dL (8.5-10.1) Phosphorus Level 4.8 mg/dL (2.6-4.7) H Albumin 2.9 g/dL (3.4-5.0) L Laboratory Tests 07/02/21 13:10 Laboratory Tests 07/02/21 13:10 07/03/21 10:30 ECHOCARDIOGRAM ECHOCARDIOGRAM <Conclusion> The left ventricle is normal size. Left ventricle systolic function is normal. The Ejection Fraction is 60-65%. There is no significant aortic valvular stenosis. Doppler and Color Flow revealed no significant aortic regurgitation. Doppler and Color Flow revealed no mitral valve regurgitation noted. Doppler and Color Flow revealed no tricuspid valve regurgitation noted. There is no evidence of significant pericardial effusion. DATE: 12/06/14 1510 ASSESSMENT/PLAN ASSESSMENT/PLAN 1. Influenza A 2. Acute on chronic systolic CHF; improved s/p IV Lasix 3. Ischemic cardiomyopathy; s/p recent AICD implantation 4. CAD s/p PCI/stent approximately 2 years ago. 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 DAMIEN on CKD 6. Hyperlipidemia; allergy to statin 7. Diabetes, II 8. Leukopenia 9. Anemia Recommendations Continue oral torsemide for now Monitor renal function closely Resume HF optimization No CHONG/ARB due to DAMIEN/CKD Secondary prevention Continue Tamiflu Awaiting records from EDWIN Levy MD 07/04/21 6567: CARDIAC CONSULT ASSESSMENT/PLAN ASSESSMENT/PLAN Patient seen and examined. Agree with MOLDING UTILITY WORKER's assessment and plan Ac on chr systolic HF better compensated with diuresis CAD clinically stable s/p AICD implantation, no recent shock therapies Continue tamiflu for Influenza A Thank you for your consultation VENKAT,VANDA IRRIGATION SUPERVISOR Jul 03, 2021 12:05 EDWIN ABDI MD Jul 04, 2021 06:35
--- NOTE | 2021-07-03 14:55 | NUR ---
SS following for discharge planning. SS reviewed pt chart and discussed with pt RN. Pt is from home and is currently on room air. Flu A positive. Cardiology and Nephrology following. SS will continue to follow for discharge planning.
[2021-07-03 15:00] VITALS: BP 129/62
--- NOTE | 2021-07-03 19:24 | PDOC ---
[employer] PROGRESS NOTE Date of Service DOS: DATE: 07/03/21 TIME: 19:22 Chief Complaint Chief Complaint Acute on chronic systolic and diastolic heart failure with flu A. The patient has been admitted. We will consult Cardiology and nephrology for DAMIEN. Oral torsemide. Tamiflu. Home meds. Deep venous thrombosis prophylaxis. Full code History of Present Illness History of Present Illness 07/03 Patient evaluated examined at bedside. Says she is feeling much improved from yesterday. Still pretty fluid overloaded. Creatinine remains elevated but baseline unknown. Records being obtained from her providers in [place]. Discussed case with cardiology. Nephrology consulted. Continue home torsemide. Tamiflu for influenza. Discussed with bedside RN. Vitals/I&O Vitals/I&O: Vital Signs Date Time Temp Pulse Resp B/P (MAP) Pulse Ox O2 Delivery O2 Flow Rate FiO2 07/03/21 16:51 66 129/62 07/03/21 15:00 98.1 18 94 Room Air 98.1 I & O 07/02/21 07/02/21 07/03/21 15:00 23:00 07:00 Intake Total 200 ml 300 ml Output Total 400 ml 150 ml Balance -200 ml 150 ml Physical Exam General: Alert, Oriented X3, Cooperative, No acute distress Heart: Regular rate Lungs: Clear Abdomen: Normal bowel sounds, Soft, No tenderness Extremities: Other (1+ bilateral LE edema ) Skin: No significant lesion Labs Labs: Laboratory Tests Test 07/03/21 07:27 07/03/21 10:30 07/03/21 11:18 07/03/21 16:43 Glucose (Fingerstick) 163 mg/dL (70-99) 106 mg/dL (70-99) 208 mg/dL (70-99) Sodium Level 139 mmol/L (136-145) Potassium Level 4.2 mmol/L (3.5-5.1) Chloride Level 103 mmol/L (98-107) Carbon Dioxide Level 25 mmol/L (21-32) Anion Gap 11 (6-14) Blood Urea Nitrogen 60 mg/dL (7-20) Creatinine 2.2 mg/dL (0.6-1.0) Estimated GFR (Cockcroft-Gault) 23.6 Glucose Level 85 mg/dL (70-99) Calcium Level 8.8 mg/dL (8.5-10.1) Phosphorus Level 4.8 mg/dL (2.6-4.7) Albumin 2.9 g/dL (3.4-5.0) Assessment and Plan Assessmemt and Plan Problems Medical Problems: (1) Acute renal insufficiency Status: Acute (2) CHF (congestive heart failure) Status: Acute (3) Influenza A Status: Acute (4) Intracranial hemorrhage Status: Acute Comment Review of Relevant I have reviewed the following items olinda (where applicable) has been applied. Medications: Current Medications Medications (Trade) Dose Ordered Sig/Alexandra Route PRN Reason Start Time Stop Time Status Last Admin Dose Admin Aspirin (Ecotrin) 81 mg DAILY PO 07/03/21 09:00 07/03/21 07:40 Ferrous Sulfate (Feosol) 325 mg DAILYWBKFT PO 07/03/21 08:00 07/03/21 07:40 Insulin Glargine (Lantus Syringe) 16 unit QHS SQ 07/02/21 21:00 07/02/21 21:32 Justifications for Admission Other Justification SLADE VELASQUEZ MD Jul 03, 2021 19:24
[2021-07-03 19:33] VITALS: BP 121/60
[2021-07-03] MEDS ORDERED: ROSUVASTATIN 20MG PO SCH (21:00)
[2021-07-03] MEDS: INSULIN GLARGINE SYRINGE. SQ SCH (21:12)
[2021-07-03 22:47] VITALS: BP 124/63
[2021-07-04 02:21] VITALS: BP 114/57
[2021-07-04 06:01] VITALS: BP 136/67
[2021-07-04] MEDS: INSULIN LISPRO 300 UNITS/3 ML VIAL. SQ SCH (07:54)
[2021-07-04] MEDS: ASPIRIN ENTERIC COATED 81 MG TABLET.DR. PO SCH (08:25)
[2021-07-04] MEDS: OSELTAMIVIR 30 MG CAPSULE PO SCH (08:25)
[2021-07-04] MEDS: FERROUS SULFATE 325 MG TABLET. PO SCH (08:25)
[2021-07-04] MEDS: CARVEDILOL 12.5 MG TABLET. PO SCH (08:25)
[2021-07-04] MEDS: TORSEMIDE 20 MG TABLET. PO SCH (08:25)
--- NOTE | 2021-07-04 09:35 | PDOC ---
DATE OF SERVICE DATE: 07/04/21 TIME: 09:35 SUBJECTIVE ROS No complaints . Denies SOB, No N/V. No urinary complaints OBJECTIVE Vital Signs Vital Signs Date Time Temp Pulse Resp B/P (MAP) Pulse Ox O2 Delivery O2 Flow Rate FiO2 07/04/21 08:25 65 136/67 07/04/21 08:00 Room Air 07/04/21 06:01 98.1 18 93 98.1 I & 0 Intake and Output 07/04/21 07:00 Intake Total 1160 ml Output Total 1700 ml Balance -540 ml Intake Oral 1160 ml Output Urine Total 1700 ml # Bowel Movements 1 PHYSICAL EXAM Physical Exam General: No acute distress, sitting up in bed HEENT: Atraumatic, OM moist Neck Supple CTA, Non labored, On RA Other Heart: Regular rate Abdomen: Soft, No tenderness, BS + Extremities:1+ bilateral LE edema, No cyanosis Skin: No significant lesion, No rash Neuro: grossly normal Psych/Mental Status: Cooperative No Best, No CVA or SP tenderness DIAGNOSIS/ASSESSMENT Assessment & Plan CKD 3B - Baseline Cr 2.4 per records from [place] Currently she is at at her baseline . Non Oliguric . Supportive care , avoid Nephrotoxins, DM on Insulin Influenza A POA Acute on chronic systolic CHF; improved s/p IV Lasix Ischemic cardiomyopathy; s/p recent AICD implantation CAD s/p PCI/stent approximately 2 years ago. 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 FU with her cdc associate COMMENT/RELEVANT DATA Meds Current Medications Medications (Trade) Dose Ordered Sig/Alexandra Start Time Stop Time Status Last Admin Dose Admin Aspirin (Ecotrin) 81 mg DAILY 07/03/21 09:00 07/04/21 08:25 81 MG Atorvastatin Calcium (Lipitor) 80 mg QHS 07/02/21 21:00 07/03/21 15:57 DC Carvedilol (Coreg) 12.5 mg BIDWMEALS 07/02/21 18:00 07/04/21 08:25 12.5 MG Dextrose (Dextrose 50%-Water Syringe) 12.5 gm PRN Q15MIN PRN 07/02/21 17:45 Dextrose (Iv Dextrose 5%) 250 ml PRN Q15MIN PRN 07/02/21 17:45 4/20/22 17:52 DC Ferrous Sulfate (Feosol) 325 mg DAILYWBKFT 07/03/21 08:00 07/04/21 08:25 325 MG Furosemide (Lasix) 40 mg 1X ONCE 07/02/21 14:30 07/02/21 14:31 DC 07/02/21 14:30 40 MG Insulin Glargine (Lantus Syringe) 16 unit QHS 07/02/21 21:00 07/03/21 21:12 16 UNIT Insulin Human Lispro (HumaLOG) 0-5 UNITS TIDWMEALS 07/02/21 18:00 07/03/21 16:52 3 UNITS Insulin Human Regular (HumuLIN R VIAL) 6 unit 1X ONCE 07/02/21 14:30 07/02/21 14:31 DC 07/02/21 14:37 6 UNIT Non-Formulary Medication (Rosuvastatin 20mg) 1 ea QHS 07/03/21 21:00 07/03/21 21:12 1 EA Ondansetron HCl (Zofran Odt) 4 mg PRN Q8HRS PRN 07/02/21 17:45 Oseltamivir Phosphate (Tamiflu) 30 mg DAILY 07/02/21 14:30 07/07/21 14:29 07/04/21 08:25 30 MG Torsemide (Demadex) 100 mg BID92 07/02/21 18:00 07/04/21 08:25 100 MG Lab Laboratory Tests Test 07/03/21 10:30 07/03/21 11:18 07/03/21 16:43 07/03/21 20:52 Sodium Level 139 mmol/L (136-145) Potassium Level 4.2 mmol/L (3.5-5.1) Chloride Level 103 mmol/L (98-107) Carbon Dioxide Level 25 mmol/L (21-32) Anion Gap 11 (6-14) Blood Urea Nitrogen 60 mg/dL (7-20) Creatinine 2.2 mg/dL (0.6-1.0) Estimated GFR (Cockcroft-Gault) 23.6 Glucose Level 85 mg/dL (70-99) Calcium Level 8.8 mg/dL (8.5-10.1) Phosphorus Level 4.8 mg/dL (2.6-4.7) Albumin 2.9 g/dL (3.4-5.0) Glucose (Fingerstick) 106 mg/dL (70-99) 208 mg/dL (70-99) 189 mg/dL (70-99) Test 07/04/21 07:46 Glucose (Fingerstick) 140 mg/dL (70-99) Results All relevant outside records, renal labs, imaging studies, telemetry/EKG's were reviewed. Justicifation of Admission Dx: Justifications for Admission: Justification of Admission Dx: N/A JT TOWNSEND MD Jul 04, 2021 09:35
[2021-07-04 10:43] LABS: CALCIUM 8.4 mg/dL (8.5-10.1); CREATININE 2.4 mg/dL (0.6-1.0); GFR 21.4
[2021-07-04 11:00] VITALS: BP 133/64
--- NOTE | 2021-07-04 11:00 | NUR ---
SS following up with discharge planning. SS reviewed pt chart and discussed with pt RN. Pt is currently on room air. Flu A positive. Cardiology and Nephrology following. SS will continue to follow for discharge planning.
[2021-07-04] MEDS ORDERED: OSEL30CA PO (11:11)
--- NOTE | 2021-07-04 12:44 | NUR ---
Discharge Note: LORI ALEXANDER [address] Discharge instructions and discharge home medications reviewed with Patient and a copy given. All questions have been answered and understanding verbalized. Prescription send to pt pharmacy. Pt stable at time of DC.
== END 2021-07-04 12:37 | disposition home or self-care (01) | DRG 193 ==
LOC: ER 12:25 → 6 SOUTH 14:13
PROVIDERS: ADMIT Internal Medicine; ATTEND Internal Medicine
DX: J10.1 Influenza due to other identified influenza virus with other respiratory manifestations (principal); I50.43 Acute on chronic combined systolic (congestive) and diastolic (congestive) heart failure; I13.0 Hypertensive heart and chronic kidney disease with heart failure and stage 1 through stage 4 chronic kidney disease, or unspecified chronic kidney disease; N17.9 Acute kidney failure, unspecified; D64.9 Anemia, unspecified; D72.819 Decreased white blood cell count, unspecified; E11.22 Type 2 diabetes mellitus with diabetic chronic kidney disease; E11.65 Type 2 diabetes mellitus with hyperglycemia; E78.5 Hyperlipidemia, unspecified; I25.10 Atherosclerotic heart disease of native coronary artery without angina pectoris; I25.5 Ischemic cardiomyopathy; Z79.4 Long term (current) use of insulin; Z83.3 Family history of diabetes mellitus; Z87.442 Personal history of urinary calculi; Z87.891 Personal history of nicotine dependence; Z88.8 Allergy status to other drugs, medicaments and biological substances; Z89.511 Acquired absence of right leg below knee; Z91.19 Patient's noncompliance with other medical treatment and regimen; Z95.5 Presence of coronary angioplasty implant and graft; Z95.810 Presence of automatic (implantable) cardiac defibrillator; M19.90 Unspecified osteoarthritis, unspecified site; Z20.822 Contact with and (suspected) exposure to COVID-19; N18.32 Chronic kidney disease, stage 3b
CPT/HCPCS: 36415; 71045; 80048; 80053; 80069; 82962; 83880; 85025; 87426; 87428; 93005; 96374; 96375; J1815; J1940; 99285-25; G0378

== ENCOUNTER 2021-08-05 20:51 | Emergency (ER) | payer MEDICAID ==
[~2021-08-05] VITALS: Ht 160 cm; Wt 69.5 kg
[~2021-08-05 20:51] MED LIST changes: +ASPI-886 PO; +CARV12.511 PO; +CRESTOR40 MG PO; +FERR240T11 PO; +ONDA4TAB12 PO; +OSEL30CA PO; +TORS100T3 PO
[2021-08-05] MEDS ORDERED: FAMOTIDINE 20 MG/2 ML VIAL IVP ONE (21:15)
[2021-08-05] MEDS ORDERED: IV NORMAL SALINE 1000ML BAG 1,000 ML IV ONE (21:15)
[2021-08-05] MEDS ORDERED: ONDANSETRON PF 4 MG/2 ML VIAL. IVP ONE (21:15)
[2021-08-05 21:33] LABS: CALCIUM 9.2 mg/dL (8.5-10.1); CREATININE 3.7 mg/dL (0.6-1.0); POTASSIUM 3.8 mmol/L (3.5-5.1)
[2021-08-05 21:39] LABS: ALBUMIN 3.3 g/dL (3.4-5.0); ALBUMIN/GLOBULIN RATIO 0.8 (1.0-1.7); TOTAL BILIRUBIN 0.7 mg/dL (0.2-1.0); TOTAL PROTEIN 7.4 g/dL (6.4-8.2)
[2021-08-05 22:04] LABS: BACTERIA,URINE FEW /HPF (0-FEW); HYALINE CASTS, URINE MODERATE /HPF
[2021-08-05 23:32] LABS: INFLUENZA A PATIENT NEGATIVE (NEGATIVE); INFLUENZA B PATIENT NEGATIVE (NEGATIVE)
--- NOTE | 2021-08-05 23:56 | PHYS DOC ---
Past Medical History Past Medical History: CHF, Diabetes-Type II, Renal Disease Additional Past Medical Histor: [id number] w/meds; Staph infection, dka, insect infestation Past Surgical History: Cholecystectomy Additional Past Surgical Histo: RIGHT LEG BKA Smoking Status: Former Smoker Alcohol Use: None Drug Use: None General Adult EDM: Chief Complaint: NAUSEA/VOMITING/DIARRHEA HPI: HPI: Patient is a 50 year old female with a history of kidney disease, CHF, diabetes type 2, right below the knee amputation, presenting to the ED today complaining of nausea, vomiting, diarrhea, symptoms since yesterday. Patient denies any fever or abdominal pain. Denies any hematemesis or melena Review of Systems: Review of Systems: Constitutional: Denies fever or chills. [] Eyes: Denies change in visual acuity. [] HENT: Denies nasal congestion or sore throat. [] Respiratory: Denies cough or shortness of breath. [] Cardiovascular: Denies chest pain or edema. [] GI: Reports nausea, vomiting, diarrhea, denies abdominal pain,bloody stools : Denies dysuria. [] Musculoskeletal: Denies back pain or joint pain. [] Integument: Denies rash. [] Neurologic: Denies headache, focal weakness or sensory changes. [] Psychiatric: Denies depression or anxiety. [] Heart Score: C/O Chest Pain: N/A Risk Factors: Risk Factors: DM, Current or recent (<one month) smoker, HTN, HLP, family history of CAD, obesity. Risk Scores: Score 0 - 3: 2.5% MACE over next 6 weeks - Discharge Home Score 4 - 6: 20.3% MACE over next 6 weeks - Admit for Clinical Observation Score 7 - 10: 72.7% MACE over next 6 weeks - Early Invasive Strategies Current Medications: Current Medications Medications (Trade) Dose Ordered Sig/Alexandra Start Time Stop Time Status Last Admin Dose Admin Famotidine (Pepcid Vial) 20 mg 1X ONCE 08/05/21 21:15 08/05/21 21:16 DC 08/05/21 21:21 20 MG Ondansetron HCl (Zofran) 4 mg 1X ONCE 08/05/21 21:15 08/05/21 21:16 DC 08/05/21 21:21 4 MG Sodium Chloride 1,000 ml @ 1,000 mls/hr 1X ONCE 08/05/21 21:15 08/05/21 22:14 DC 08/05/21 21:21 1,000 MLS/HR Allergies: Allergies: Allergies Coded Allergies Type Severity Reaction Last Updated Verified atorvastatin Allergy Intermediate home med rosuvastatin is ok 07/04/21 Yes Physical Exam: PE: Constitutional: Well developed, well nourished, no acute distress, non-toxic appearance. [] HENT: Normocephalic, atraumatic, bilateral external ears normal, oropharynx moist, no oral exudates, nose normal. [] Eyes: PERRLA, EOMI, conjunctiva normal, no discharge. [] Neck: Normal range of motion, no tenderness, supple, no stridor. [] Cardiovascular:Heart rate regular rhythm, no murmur [] Lungs & Thorax: Bilateral breath sounds clear to auscultation [] Abdomen: Bowel sounds normal, soft, no tenderness, no masses, no pulsatile masses. [] Skin: Warm, dry, no erythema, no rash. [] Back: No tenderness, no CVA tenderness. [] Extremities: No tenderness, no cyanosis, no clubbing, ROM intact, no edema. [] Neurologic: Alert and oriented X 3, normal motor function, normal sensory function, no focal deficits noted. [] Psychologic: Affect normal, judgement normal, mood normal. [] Current Patient Data: Labs: Laboratory Tests Test 08/05/21 21:14 08/05/21 21:48 08/05/21 23:10 Sodium Level 133 mmol/L (136-145) L Potassium Level 3.8 mmol/L (3.5-5.1) Chloride Level 95 mmol/L (98-107) L Carbon Dioxide Level 26 mmol/L (21-32) Anion Gap 12 (6-14) Blood Urea Nitrogen 70 mg/dL (7-20) H Creatinine 3.7 mg/dL (0.6-1.0) H Estimated GFR (Cockcroft-Gault) 13.0 BUN/Creatinine Ratio 19 (6-20) Glucose Level 309 mg/dL (70-99) H Calcium Level 9.2 mg/dL (8.5-10.1) Total Bilirubin 0.7 mg/dL (0.2-1.0) Aspartate Amino Transferase (AST) 23 U/L (15-37) Alanine Aminotransferase (ALT) 29 U/L (14-59) Alkaline Phosphatase 121 U/L (46-116) H Total Protein 7.4 g/dL (6.4-8.2) Albumin 3.3 g/dL (3.4-5.0) L Albumin/Globulin Ratio 0.8 (1.0-1.7) L Urine Collection Type Unknown Urine Color (Auto) Light yellow Urine Turbidity Clear Urine pH (Auto) 7.5 (<5.0-8.0) Urine Specific Labadie 1.015 (1.000-1.030) Urine Protein (Auto) 300 mg/dL (Negative) Urine Glucose (Auto)(UA) 500 mg/dL (Negative) Urine Ketones (Auto) Negative mg/dL (Negative) Urine Blood (Auto) Trace (Negative) Urine Nitrite Negative (Negative) Urine Bilirubin (Auto) Negative (Negative) Urine Urobilinogen (Auto) Normal mg/dL (Normal) Urine Leukocyte Esterase (Auto) Negative (Negative) Urine RBC 3-5 /HPF (0-2) Urine WBC 5-10 /HPF (0-4) Urine Squamous Epithelial Cells Many /LPF Urine Bacteria Few /HPF (0-FEW) Urine Hyaline Casts Moderate /HPF Urine Mucus Mod /LPF Influenza Type A Antigen Negative (NEGATIVE) Influenza Type B Antigen Negative (NEGATIVE) SARS-CoV-2 Antigen (Rapid) Negative (NEGATIVE) Laboratory Tests 08/05/21 21:14 Vital Signs: Vital Signs Date Time Temp Pulse Resp B/P (MAP) Pulse Ox O2 Delivery O2 Flow Rate FiO2 08/05/21 21:09 97.9 88 16 113/55 (74) 100 Room Air 97.9 EKG: EKG: [] Radiology/Procedures: Radiology/Procedures: [] Course & Med Decision Making: Course & Med Decision Making Pertinent Labs and Imaging studies reviewed. (See chart for details) This is a 50-year-old female patient presented to the ED today complaining of nausea, vomiting, diarrhea, symptoms for 1 day. CBC with a normal WBC, hemoglobin 10.1 with hematocrit of 29.6, history of chronic anemia from kidney disease. CMP with creatinine of 3.7, BUN of 70. Patient's previous creatinine last month was 2.4 with BUN of 63, glucose 309. Anion gap is normal. Urine negative for nitrates, negative for leukocytes. Negative influenza A and B test, negative COVID test, I offered to this patient admission to the hospital, she states she has been admitted to many times she does not want to stay in the hospital. She was given a liter of fluids in the ED. She was discharged to home. Follow-up with her doctor in the course of this week Mindi Disclaimer: Mindi Disclaimer: This electronic medical record was generated, in whole or in part, using a voice recognition dictation system. Departure Departure Impression: Primary Impression: Vomiting and diarrhea Disposition: HOME / SELF CARE / HOMELESS Condition: STABLE Referrals: UNKNOWN PCP NAME (PCP) follow up with your doctor in the course of this week Patient Instructions: Diarrhea, [id number], Nausea and Vomiting Additional Instructions: You were evaluated in the emergency room. Please call your doctor tomorrow morning and set up a follow-up appointment. Come back to the ED at any point symptoms worsen Scripts Ondansetron (ONDANSETRON ODT) 4 Mg Tab.rapdis 1 TAB PO PRN Q6-8HRS, #16 TAB Prov: GARLAND BROWNING APRN 08/06/21 GARLAND BROWNING APRN August 05, 2021 23:56
[2021-08-06 00:08] VITALS: BP 104/56
[2021-08-06 00:09] LABS: BASO # 0.1 x10^3/uL (0.0-0.2); BASO % 1 % (0-3); EOS # 0.2 x10^3/uL (0.0-0.7); EOS % 4 % (0-3); HEMATOCRIT 29.6 % (36.0-47.0); HEMOGLOBIN 10.1 g/dL (12.0-15.5); LYMPH # 1.3 x10^3/uL (1.0-4.8); LYMPH % 25 % (24-48); MEAN CORPUSCULAR HEMOGLOBIN 29 pg (25-35); MEAN CORPUSCULAR HGB CONC 34 g/dL (31-37); MEAN CORPUSCULAR VOLUME 85 fL (79-100); MONO # 0.4 x10^3/uL (0.0-1.1); MONO % 8 % (0-9); NEUT # 3.2 x10^3/uL (1.8-7.7); NEUT % 62 % (31-73); PLATELET COUNT 230 x10^3/uL (140-400); RED BLOOD COUNT 3.47 x10^6/uL (3.50-5.40); RED CELL DISTRIBUTION WIDTH 12.5 % (11.5-14.5); WHITE BLOOD COUNT 5.2 x10^3/uL (4.0-11.0)
[2021-08-06] MEDS ORDERED: ONDA4TAB12 PO (00:15)
== END 2021-08-06 00:20 | disposition home or self-care (01) ==
LOC: ER 20:51
DX: R11.2 Nausea with vomiting, unspecified (principal); R19.7 Diarrhea, unspecified; Z20.822 Contact with and (suspected) exposure to COVID-19; E11.22 Type 2 diabetes mellitus with diabetic chronic kidney disease; N18.9 Chronic kidney disease, unspecified; Z86.79 Personal history of other diseases of the circulatory system; Z90.49 Acquired absence of other specified parts of digestive tract; Z87.891 Personal history of nicotine dependence; Z88.8 Allergy status to other drugs, medicaments and biological substances
CPT/HCPCS: 36415; 80053; 81001; 85025; 87086; 87428; 96361; 96374; 96375; 99285; J2405; J3490; J7030